=== PATIENT | female | born 1940 | race Caucasian/White ===

== ENCOUNTER 2020-02-27 14:30 | Outpatient (CLI) | payer MEDICARE, SELFPAY ==
--- NOTE | ~2020-02-27 | MM_ITS ---
EXAMINATION: MM screening francia BI w yue HISTORY: Screening mammogram TECHNIQUE: Craniocaudal and mediolateral oblique 3-D tomosynthesis images were obtained and synthetic 2-D images were generated. CAD analysis was submitted and interpreted. COMPARISON: , 01/01/2018, 01 0106/01/2016 bilateral digital screening mammogram examinations BREAST PARENCHYMAL COMPOSITION: There are scattered areas of fibroglandular density. FINDINGS: There is no evidence of suspicious mass, calcification, or architectural distortion to sugg est malignancy in either breast. There has been no suspicious interval change. IMPRESSION: 1. No mammographic evidence of malignancy. 2. Recommend routine screening mammography in one year. BI-RADS Category 1: Negative Reviewed, dictated and finalized at location A. [employer]
== END 2020-02-27 14:31 | disposition home or self-care (01) ==
LOC: ANHIMG 14:34
PROVIDERS: PCP Internal Medicine; Visit Provider Internal Medicine
DX: Z12.31 Encounter for screening mammogram for malignant neoplasm of breast (principal)
CPT/HCPCS: 77063; 77067

== ENCOUNTER 2020-05-28 07:50 | Outpatient (CLI) | payer MEDICARE, SELFPAY ==
--- NOTE | ~2020-05-28 | DEXA_ITS ---
Bone Density Report Name: Kristie Chan Age: 80 Sex: Female Ethnicity: White Date of : 1940 Indication: postmenopausal; Referring Provider: NOELLE RUIZ Study: Bone densitometry was performed. Exam Date: May 28, 2020 Accession number: [id number] Bone Density: Region BMD T-score Z-score Classification AP Spine (L1-L4) 0.908 -1.3 1.5 Osteopenia Femoral Neck (Left) 0.625 -2.0 0.4 Osteopenia Total Hip (Left) 0.779 -1.3 0.9 Osteopenia Total Hip Bilateral Avg 0.759 -1.5 0.7 Osteopenia Femoral Neck (Right) 0.661 -1.7 0.7 Osteopenia Total Hip (Right) 0.738 -1.7 0.5 Osteopenia World Health Organization criteria for BMD impression classify patients as: Normal (T-score at or above -1.0), Osteopenia (T-score between -1.0 and -2.5), or Osteoporosis (T-score at or below -2.5). 10-year Fracture Risk(1): Major Osteoporotic Fracture 15% Hip Fracture 4.4% Reported Risk Factors: [place] (), Neck BMD=0.625, BMI=30.3 (1) FRAX(R) Version 3.08. Fracture probability calculated for an untreated patient. Fracture probability may be lower if the patient has received treatment. Clinical Information Provided by Patient: Has used the following medications: Vitamin D, Calcium Patient maximum height was 59.5 Menopause Age: 52 Drinks caffeinated beverages Onset of menses at age 8 Number of children 4 Impression: The patient has low bone mass, based on the Left Femoral Neck T-score. The patient has an estimated ten-year risk of hip fracture of 4.4% and an estimated ten-year risk of major fracture of 15%, based on the WHO FRAX algorithm. Discussion: BONE DENSITY IS LOW AT ONE OR MORE SKELETAL SITES. THE PATIENT'S BMD AND CLINICAL RISK FACTORS CONTRIBUTE TO THIS PATIENT'S INCREASED RISK OF FRACTURE. This patient's lowest T-score is low at one or more skeletal sites. It meets the World Health Organization's (WHO) criteria for ?low bone mass? (T-score between -1.0 and -2.5). The patient's 10-year risk of hip fracture as calculated by FRAX exceeds the threshold where pharmacological therapy is recommended by the National Osteoporosis Foundation (NOF). However, all treatment decisions require clinical judgment and consideration of individual patient factors, including patient preferences, comorbidities, previous drug use, risk factors not captured in the FRAX model (e.g., frailty, falls, vitamin D deficiency, increased bone turnover, interval significant decline in bone density) and possible under or overestimation of fracture risk by FRAX. The patient should follow a healthful lifestyle (good nutrition with adequate calcium and vitamin D, and appropriate weight-bearing exercise). Follow-Up: Consider a repeat BMD and Vertebral Fracture Assessment (VFA) exam in 2 years or sooner if medically necessary, to re
== END 2020-05-28 07:51 | disposition home or self-care (01) ==
LOC: ANHIMG 07:53
PROVIDERS: PCP Internal Medicine; Visit Provider Internal Medicine
DX: Z78.0 Asymptomatic menopausal state (principal); M85.88 Other specified disorders of bone density and structure, other site; M85.852 Other specified disorders of bone density and structure, left thigh; M85.851 Other specified disorders of bone density and structure, right thigh
CPT/HCPCS: 77080

== ENCOUNTER 2020-07-24 05:20 | Emergency (ER) | payer MEDICARE, SELFPAY ==
[2020-07-24 05:19] VITALS: BP 130/70; PULSE 96; RESP 15; TEMP 36.8; O2SAT 97
--- NOTE | 2020-07-24 05:38 | ED.GENADULT ---
HPI - General Adult General Chief complaint: Epistaxis Stated complaint: SYNCOPE Time Seen by Provider: 07/24/20 05:28 History of Present Illness HPI narrative: Patient 80-year-old female presents the emergency department with chief complaint of epistaxis. The patient reports that for the last several days she has had bleeding out of her left nostril the patient has been seen by otolaryngology and had a cauterization done. The patient states this evening she started bleeding again from her nostril and felt as though she was going to pass out. The patient currently states she feels nauseated and reports there was a large amount of blood on the floor after her nosebleed this evening. Patient reports that this time it is stopped bleeding Related Data Home Medications Medication Instructions Recorded Confirmed aspirin 81 mg tablet,delayed 81 mg PO DAILY 02/23/19 04/27/20 release cholecalciferol (vitamin D3) 25 1,000 unit PO DAILY 02/23/19 04/27/20 mcg (1,000 unit) capsule omega 8-gnk-qvt-fish oil 1,000 mg 1 cap PO DAILY 02/23/19 04/27/20 (120 mg-180 mg) capsule docusate sodium 100 mg capsule 100 mg PO DAILY 03/28/19 04/27/20 vit tablet PO 03/28/19 04/27/20 M-lvrueow-ryckthrzs-rutin-giaq677 500 mg-50 mg-25 mg-40 mg tablet biotin 2,500 mcg capsule 2,500 mcg PO DAILY 04/27/20 04/27/20 vitamin B complex 1 tablet PO DAILY 04/27/20 04/27/20 Allergies Allergy/AdvReac Type Severity Reaction Status Date / Time adhesive tape Allergy Mild rash/non=it Verified 07/23/20 13:12 nicolas Review of Systems Review of Systems: Narrative: A 10 system review of systems was completed on the patient and is negative except for what is stated in the HPI. Nursing and ancillary documentation was reviewed. [facility] Surgical History Surgical History H/O oophorectomy History of right cataract surgery Hx of appendectomy Hx of cholecystectomy Hx of lumpectomy Family History Family History Sibling Carcinoma of colon Family history of malignant neoplasm of breast in first degree relative Family history of malignant neoplasm Mother Family history of malignant neoplasm of breast in first degree relative Family history of lung cancer Other Family history of malignant neoplasm of thyroid Social History Social History Smoking status: Never smoker Alcohol intake: never Exam Narrative: Exam Narrative: GENERAL: Well-appearing, well-nourished, and in no acute distress. HEAD: Normocephalic, atraumatic. EYES: PERRLA and EOMI. ENT: Nares clear, no rhinorrhea or epistaxis. Mucous membranes moist. There is a small amount of blood in the nasal cavity. There is no active bleeding at this time NECK: Supple. CHEST: Clear to auscultation. No respiratory distress. HEART: Regular rate and rhythm. No murmur heard. Normal peripheral pulses. ABDOMEN: Soft, nontender, nondistended, normal active bowel sounds. EXTREMITIES: Normal range of motion. No edema. SKIN: Warm, dry, no rash. NEURO: No focal deficits. Alert and oriented x3. PSYCH: Normal mood and affect. Course Vital Signs Vital signs: Vital Signs Temperature 36.8 C 07/24/20 05:19 Pulse Rate 96 07/24/20 05:19 Respiratory Rate 15 07/24/20 05:19 Blood Pressure 130/70 07/24/20 05:19 Pulse Oximetry 97 07/24/20 05:19 Temperature 36.9 C 07/24/20 06:57 Pulse Rate 84 07/24/20 06:57 Respiratory Rate 16 07/24/20 06:57 Blood Pressure 111/71 07/24/20 06:57 Pulse Oximetry 100 07/24/20 06:57 Medical Decision Making Vital Signs Vital Signs: Vital Signs Temperature 36.8 C 07/24/20 05:19 Pulse Rate 96 07/24/20 05:19 Respiratory Rate 15 07/24/20 05:19 Blood Pressure 130/70 07/24/20 05:19 Pulse Oximetry 97 07/24/20 05:19 Temperature 36.
[2020-07-24 06:19] LABS: Basophils Percent Auto 0.4 % (0.2-1.2); Eosinophils Absolute Auto 0.2 K/mm3 (0-0.3); Eosinophils Percent Auto 2.9 % (0-4.4); Hematocrit 38.2 % (37.0-47.0); Hemoglobin 12.7 g/dL (12.0-15.0); Immature Granulocyte Absolute 0.02 K/mm3 (0.00-0.031); Immature Granulocyte Percent A 0.3 % (0-0.5); Lymphocytes Absolute Auto 2.04 K/mm3 (0.9-3.2); Lymphocytes Percent Auto 26.8 % (18.3-44.2); Mean Corpuscular HGB Conc 33.2 g/dl (32-36); Mean Corpuscular Hemoglobin 31.1 pg (26-34); Mean Corpuscular Volume 93.6 fl (80-100); Mean Platelet Volume 8.9 fl (7.4-10.4); Monocytes Absolute Auto 0.4 K/mm3 (0.1-0.6); Monocytes Percent Auto 4.7 % (2.6-8.5); Neutrophils Absolute Auto 4.9 K/mm3 (1.3-6.7); Neutrophils Percent Auto 64.9 % (45.5-73.1); Platelet Count Result 305 k/mm3 (150-375); Red Blood Count 4.08 M/mm3 (4.2-5.4); Red Cell Distribution Width 12.6 % (11.5-14.5); White Blood Count 7.6 K/mm3 (4.5-10.0)
[2020-07-24 06:28] LABS: INR 0.9; Prothrombin Time 13.2 Seconds (11.1-14.7)
[2020-07-24 06:35] LABS: Alanine Aminotransferase 17 U/L (4-35); Albumin Level 3.6 g/dL (3.5-5.1); Alkaline Phosphatase 59 U/L (38-126); Anion Gap 3 mmol/L (8-16); Aspartate Amino Transferase 26 U/L (14-36); Bilirubin,Total 0.3 mg/dL (0.2-1.3); Blood Urea Nitrogen 14 mg/dL (7-17); Calcium 8.8 mg/dL (8.4-10.2); Carbon Dioxide 27 mmol/L (22-30); Chloride 109 mmol/L (98-107); Estimated Glomerular Filt Rate > 60; Glucose 108 mg/dL (65-105); Potassium 3.4 mmol/L (3.4-5.0); Sodium 139 mmol/L (137-145)
[2020-07-24] MEDS: PHENYLEPHRINE 1% NA SPR (*BKC) 15 ML BTL 2 SPRAY NASAL (06:45)
[2020-07-24] MEDS: ONDANSETRON HCL ODT 4 MG TABLET PO (06:56)
[2020-07-24 06:57] VITALS: BP 111/71; PULSE 84; RESP 16; TEMP 36.9; O2SAT 100
== END 2020-07-24 06:57 | disposition home or self-care (01) ==
PROVIDERS: Emergency Provider Emergency Medicine; PCP Internal Medicine
DX: R04.0 Epistaxis (principal); R55 Syncope and collapse; R11.0 Nausea; Z79.82 Long term (current) use of aspirin; Z98.41 Cataract extraction status, right eye
CPT/HCPCS: 36415; 80053; 85025; 85610; 85730; 99283; A9270

== ENCOUNTER 2020-08-07 07:56 | Emergency (ER) | payer MEDICARE, SELFPAY ==
[2020-08-07] VITALS (7 sets, daily range): BP systolic 125–149; BP diastolic 67–103; PULSE 78–126; RESP 17–20; TEMP 36.4; O2SAT 96–99
--- NOTE | 2020-08-07 09:35 | ED.GENADULT ---
HPI - General Adult General Chief complaint: Epistaxis <Mitchell Gallego PA-C - Last Filed: 08/07/20 11:59> Stated complaint: nosebleed <KENDRA Gillette Last Filed: 08/07/20 11:59> Time Seen by Provider: 08/07/20 08:25 <Mitchell Gallego PA-C - Last Filed: 08/07/20 11:59> Source: patient, family and RN notes reviewed <KENDRA Gillette Last Filed: 08/07/20 11:59> Mode of arrival: ambulatory <KENDRA Gillette Last Filed: 08/07/20 11:59> Limitations: no limitations <KENDRA Gillette Last Filed: 08/07/20 11:59> History of Present Illness HPI narrative: Patient is an 80-year-old female who presents with epistaxis from the left nare that began this morning after coughing patient denies URI symptoms patient has had epistaxis in the past requiring cautery has seen Dr. Villagomez ENT for this. Patient on arrival is in no distress denies any injury trauma or recent illness. Patient denies anticoagulant use <Mitchell Gallego PA-C - Last Filed: 08/07/20 11:59> Related Data Home medications: Home Medications Medication Instructions Recorded Confirmed aspirin 81 mg tablet,delayed 81 mg PO DAILY 02/23/19 04/27/20 release cholecalciferol (vitamin D3) 25 1,000 unit PO DAILY 02/23/19 04/27/20 mcg (1,000 unit) capsule omega 0-lwe-oqs-fish oil 1,000 mg 1 cap PO DAILY 02/23/19 04/27/20 (120 mg-180 mg) capsule docusate sodium 100 mg capsule 100 mg PO DAILY 03/28/19 04/27/20 vit tablet PO 03/28/19 04/27/20 M-cbrmkno-dkttejqin-rutin-vcbs282 500 mg-50 mg-25 mg-40 mg tablet biotin 2,500 mcg capsule 2,500 mcg PO DAILY 04/27/20 04/27/20 vitamin B complex 1 tablet PO DAILY 04/27/20 04/27/20 <KENDRA Gillette Last Filed: 08/07/20 11:59> Allergies/adverse reactions: Allergies Allergy/AdvReac Type Severity Reaction Status Date / Time adhesive tape Allergy Mild rash/non=it Verified 08/07/20 08:22 nicolas <Mitchell Gallego PA-C - Last Filed: 08/07/20 11:59> Review of Systems Review of Systems: All systems reviewed & are unremarkable except as noted in HPI and below <Mitchell Gallego PA-C - Last Filed: 08/07/20 11:59> PMFSH Surgical History Surgical History: Surgical History H/O oophorectomy History of right cataract surgery Hx of appendectomy Hx of cholecystectomy Hx of lumpectomy <Mitchell Gallego PA-C - Last Filed: 08/07/20 11:59> Family History Family History: Family History Sibling Carcinoma of colon Family history of malignant neoplasm of breast in first degree relative Family history of malignant neoplasm Mother Family history of malignant neoplasm of breast in first degree relative Family history of lung cancer Other Family history of malignant neoplasm of thyroid <Mitchell Gallego PA-C - Last Filed: 08/07/20 11:59> Social History Social History: Social History Smoking status: Never smoker Alcohol intake: never Gender identity (if verbalized by the patient): Female <Mitchell Gallego PA-C - Last Filed: 08/07/20 11:59> Exam Narrative: Exam Narrative: GENERAL: Well-appearing, well-nourished, and in no acute distress. HEAD: Normocephalic, atraumatic. EYES: PERRLA and EOMI. ENT: Patient with clots in the left nare which were clear there is no anterior bleeding bleeding appears to be posterior. Mucous membranes moist. Oropharynx without tonsillar hypertrophy exudate or other lesions. Some blood trickling down the posterior oropharynx NECK: Supple. No adenopathy or masses. CHEST: Clear to auscultation. No respiratory distress. No wheezes rales or rhonchi HEART: Regular rate and rhythm. No murmur heard. EXTREMITIES: Normal range of motion. No edema. SKIN: Warm, dry, no rash. NEURO: No focal deficits.
[2020-08-07 10:59] LABS: Basophils Percent Auto 0.4 % (0.2-1.2); Eosinophils Percent Auto 0.4 % (0-4.4); Hematocrit 36.1 % (37.0-47.0); Hemoglobin 11.9 g/dL (12.0-15.0); Immature Granulocyte Absolute 0.03 K/mm3 (0.00-0.031); Immature Granulocyte Percent A 0.3 % (0-0.5); Lymphocytes Absolute Auto 1.21 K/mm3 (0.9-3.2); Lymphocytes Percent Auto 12.6 % (18.3-44.2); Mean Corpuscular Hemoglobin 31.6 pg (26-34); Mean Corpuscular Volume 95.8 fl (80-100); Mean Platelet Volume 8.6 fl (7.4-10.4); Monocytes Absolute Auto 0.4 K/mm3 (0.1-0.6); Monocytes Percent Auto 3.6 % (2.6-8.5); Neutrophils Percent Auto 82.7 % (45.5-73.1); Platelet Count Result 415 k/mm3 (150-375); Red Blood Count 3.77 M/mm3 (4.2-5.4); Red Cell Distribution Width 14.2 % (11.5-14.5); White Blood Count 9.6 K/mm3 (4.5-10.0)
--- NOTE | 2020-08-07 11:15 | PC.NURSE ---
Report given to MAGGY Salazar
--- NOTE | 2020-08-08 08:58 | WPDCN ---
Assessment and Plan Assessment and plan (1) Left-sided epistaxis: Code(s): R04.0 - Epistaxis Status: Acute Assessment and Plan: 7.5 rhino rocket placed and inflated. The patient will follow-up with me in 24-72 hours for further evaluation. My concern is that this bleed is coming from posterior and may need operative intervention. We shall see. Instructions on how to further manage epistaxis and the rhino rocket were provided in great detail to the patient who voiced understanding. The ER will obtain a CBC to further determine the patient's hemoglobin And blood loss. HPI Data of Consult Date/Time: 08/08/20 08:58 Primary Care Provider: Toby Randall DO Consult Narrative Narrative: Kristie Chan is a 80 year old female With a one-day history of epistaxis from the left side. Of note the patient has had multiple episodes of epistaxis over the past several months. ENT consult for further evaluation as she has already my partners patient and in the practice. Patient denies being on any blood thinners. Review of Systems Constitutional: Constitutional: Denies fatigue, Denies fever(s) and Denies lethargy Eyes: Eyes: Denies blurry vision and Denies change in vision ENT: Reports as per HPI Cardiovascular: Cardiovascular: Denies chest pain Respiratory: Respiratory: Denies cough Endocrine: Endocrine: Denies fatigue Hematologic/Lymphatic: Hematologic/Lymphatic: Denies easy bleeding, Denies easy bruising and Denies lymphadenopathy Allergic/Immunologic: Allergic/Immunologic: Denies seasonal rhinorrhea PMFSH Surgical History Surgical History H/O oophorectomy History of right cataract surgery Hx of appendectomy Hx of cholecystectomy Hx of lumpectomy Family History Family History Sibling Carcinoma of colon Family history of malignant neoplasm of breast in first degree relative Family history of malignant neoplasm Mother Family history of malignant neoplasm of breast in first degree relative Family history of lung cancer Other Family history of malignant neoplasm of thyroid Social History Social History Smoking status: Never smoker Alcohol intake: never Gender identity (if verbalized by the patient): Female Meds Home Medications and Allergies Home Medications Medication Instructions Recorded Confirmed Type aspirin 81 mg tablet,delayed 81 mg PO DAILY 02/23/19 04/27/20 History release cholecalciferol (vitamin D3) 25 1,000 unit PO DAILY 02/23/19 04/27/20 History mcg (1,000 unit) capsule omega 5-jwm-qze-fish oil 1,000 mg 1 cap PO DAILY 02/23/19 04/27/20 History (120 mg-180 mg) capsule docusate sodium 100 mg capsule 100 mg PO DAILY 03/28/19 04/27/20 History vit tablet PO 03/28/19 04/27/20 History K-ndhyjeu-gtipoqcoh-rutin-qtxu363 500 mg-50 mg-25 mg-40 mg tablet amitriptyline 10 mg tablet 10 mg PO DAILY #90 tablet 02/27/20 04/27/20 Rx biotin 2,500 mcg capsule 2,500 mcg PO DAILY 04/27/20 04/27/20 History vitamin B complex 1 tablet PO DAILY 04/27/20 04/27/20 History ondansetron 4 mg PO Q8H PRN #10 tablet 07/24/20 Rx Allergies Allergy/AdvReac Type Severity Reaction Status Date / Time adhesive tape Allergy Mild rash/non=it Verified 08/07/20 08:22 nicolas Vital Signs Vital Signs - 24 hr 08/07/20 09:00 08/07/20 09:30 08/07/20 10:00 Pulse Rate 98 87 83 Respiratory Rate 20 20 20 Blood Pressure 126/76 139/79 125/67 Pulse Oximetry 98 96 96 08/07/20 10:20 08/07/20 12:11 Pulse Rate 98 78 Respiratory Rate 17 20 Blood Pressure 149/90 H 132/78 Pulse Oximetry 96 99 Exam Const: General: cooperative, healthy appearing, comfortable, well developed and alert HENMT: Head: normal to inspection, normocephalic and atraumatic Ears: hearing grossly normal bilaterally, e
--- NOTE | 2020-08-08 09:01 | WPDPROCEDUR ---
Procedures Epistaxis Control Time out performed: No Nostril: left Direct inspection: posterior source identified Cautery used: none Device inserted: hemostatic balloon Patient tolerated procedure: well and no complications Complications: pain
== END 2020-08-07 12:12 | disposition home or self-care (01) ==
PROVIDERS: Emergency Medicine Emergency Medical Services; Emergency Provider Emergency Medicine; PCP Internal Medicine
DX: R04.0 Epistaxis (principal); Z98.41 Cataract extraction status, right eye
CPT/HCPCS: 30901; 36415; 85025; 99283; A9270

== ENCOUNTER 2020-09-28 01:21 | Day surgery (SDC) | payer MEDICARE, SELFPAY ==
[2020-09-14 11:10] VITALS: BMI 28.8
--- NOTE | 2020-09-27 08:42 | PM.IMHP ---
H&P: HPI History of Present Illness Date/Time: 09/27/20 08:42 Patient presents for planned surgical procedures. Reports no new symptoms or changes in her medical history. Chief Complaint: Epistaxis left-sided recurrent and severe Review of Systems Constitutional: Constitutional: Denies fatigue, Denies fever(s) and Denies lethargy Eyes: Eyes: Denies blurry vision and Denies change in vision ENT: Reports as per HPI Cardiovascular: Cardiovascular: Denies chest pain Respiratory: Respiratory: Denies cough Endocrine: Endocrine: Denies fatigue Hematologic/Lymphatic: Hematologic/Lymphatic: Denies easy bleeding, Denies easy bruising and Denies lymphadenopathy Allergic/Immunologic: Allergic/Immunologic: Denies seasonal rhinorrhea [facility] Surgical History Surgical History H/O oophorectomy History of right cataract surgery Hx of appendectomy Hx of cholecystectomy Hx of lumpectomy Family History Family History Sibling Carcinoma of colon Family history of malignant neoplasm of breast in first degree relative Family history of malignant neoplasm Mother Family history of malignant neoplasm of breast in first degree relative Family history of lung cancer Other Family history of malignant neoplasm of thyroid Social History Social History Smoking status: Never smoker Second hand tobacco smoke exposure: No Alcohol intake: never Substance use: never Substance use type: does not use Living arrangements: with family Additional living arrangements comments: LIVES WITH DAUGHTER Gender identity (if verbalized by the patient): Female Spiritual care concerns: No Meds Home Medications and Allergies Home Medications Medication Instructions Recorded Confirmed Type cholecalciferol (vitamin D3) 25 1,000 unit PO QAM 02/23/19 09/14/20 History mcg (1,000 unit) capsule docusate sodium 100 mg capsule 100 mg PO DAILY 03/28/19 09/14/20 History vit 1 tablet PO HS 03/28/19 09/14/20 History Y-prcyffh-yezbwqriw-rutin-[id number] 500 mg-50 mg-25 mg-40 mg tablet vitamin B complex 1 tablet PO QAM 04/27/20 09/14/20 History ondansetron 4 mg PO Q8H PRN #10 tablet 07/24/20 09/14/20 Rx amitriptyline 10 mg PO HS 09/14/20 09/14/20 History calcium carbonate [Tums] 300 mg PO BID 09/14/20 09/14/20 History Allergies Allergy/AdvReac Type Severity Reaction Status Date / Time adhesive tape Allergy Mild rash/non=it Verified 09/14/20 11:04 nicolas Exam Const: General: cooperative, healthy appearing, comfortable, well developed and alert HENMT: Head: normal to inspection, normocephalic and atraumatic Ears: hearing grossly normal bilaterally, external ears normal, TM's normal bilaterally and EAC's normal General nose exam: Normal external nose present, Normal nares present, No nasal polyps present, Normal nasal mucous membranes and turbinates present and Normal septum present Face and sinus: normal facial exam Mouth: Yes Normal oral and palatal mucosa present, Yes lip normal, Yes tongue normal, Yes oropharynx normal and Yes moist mucous membranes Teeth and gingiva: dentition normal and gingiva normal Throat: posterior oropharynx normal, tonsils normal and uvula midline Eyes: General: appearance normal, both eyes and all related structures Periorbital: periorbital findings normal Eyelids: eyelids normal Conjunctivae: conjunctivae normal Sclera: sclerae normal Neck: Neck: normal visual inspection, full ROM and no lymphadenopathy Thyroid: thyroid normal Lymphatic: no lymphadenopathy noted Resp: Effort & Inspection: normal respiratory effort and able to speak in complete sentences Cardio: Jugular venous distension: no JVD Neuro: Cranial nerves: Yes CN's II-XII intact bilaterally Assessment and Plan Assessment and plan (1) Left-sided epista
[2020-09-28] VITALS (8 sets, daily range): BP systolic 126–152; BP diastolic 68–94; PULSE 60–87; RESP 14–22; TEMP 36.2–36.4; O2SAT 96–100
--- NOTE | 2020-09-28 07:03 | WPDHPUPDATE1 ---
History and Physical Update Update Date/Time: 09/28/20 07:03 History and Physical has been reviewed, including an updated exam of the patient. There are NO changes in the patient's condition. Risks, benefits, and alternatives have been discussed and questions answered. Patient agrees to proceed with procedure.
--- NOTE | 2020-09-28 08:11 | WPDANESEPPF ---
Anes - Initial Pre Proc Eval Procedure: Operation Date: 09/28/20 09:30 Proposed Procedures p Endoscopic Ligation of Left Sphenopalantine Artery, Left Maxillary Antrostomy - Daniel Bryant MD Date/Time: 09/28/20 08:11 Surgeon: Daniel Bryant MD Pre Op Diagnosis: left sided epistaxis Patient Data Age: 80 Gender: F Height: 1.51 m Weight: 65.9 kg Allergies Allergy/AdvReac Type Severity Reaction Status Date / Time adhesive tape Allergy Mild rash/non=it Verified 09/28/20 08:06 nicolas Home Medications Medication Instructions Recorded Confirmed Type cholecalciferol (vitamin D3) 25 1,000 unit PO QAM 02/23/19 09/28/20 History mcg (1,000 unit) capsule docusate sodium 100 mg capsule 100 mg PO DAILY 03/28/19 09/28/20 History vit 1 tablet PO HS 03/28/19 09/14/20 History C-mgwmijy-qffoeumja-rutin-ybph874 500 mg-50 mg-25 mg-40 mg tablet vitamin B complex 1 tablet PO QAM 04/27/20 09/28/20 History ondansetron 4 mg PO Q8H PRN #10 tablet 07/24/20 09/28/20 Rx amitriptyline 10 mg PO HS 09/14/20 09/28/20 History calcium carbonate [Tums] 300 mg PO BID 09/14/20 09/28/20 History Patient hx anesthesia problems: none Family hx anesthesia problems: none PMFSH Surgical History Surgical History H/O oophorectomy History of right cataract surgery Hx of appendectomy Hx of cholecystectomy Hx of lumpectomy Family History Family History Sibling Carcinoma of colon Family history of malignant neoplasm of breast in first degree relative Family history of malignant neoplasm Mother Family history of malignant neoplasm of breast in first degree relative Family history of lung cancer Other Family history of malignant neoplasm of thyroid Social History Social History Smoking status: Never smoker Second hand tobacco smoke exposure: No Alcohol intake: never Substance use: never Substance use type: does not use Living arrangements: with family Additional living arrangements comments: LIVES WITH DAUGHTER Gender identity (if verbalized by the patient): Female Spiritual care concerns: No Anes - Eval Final PreProcedure Day of Procedure 09/28/20 08:11 Patient weight: overweight Heart: regular rate and rhythm Lungs: clear to auscultation Airway: Mallampati scale class II Neurological: alert and oriented Last oral intake: >/= 8 hours ASA classification: II Emergent: no Anesthetic plan: proceed Anesthesia type and monitoring: general ETT and standard monitoring Informed Consent: The patient's anesthetic plan and its attendant risks and benefits were discussed with the patient/family/POA. Questions were solicited and answers provided to the satisfaction of the patient/family/POA.
[2020-09-28] MEDS: ACETAMINOPHEN 500 MG TABLET 1000 MG PO (08:13)
[2020-09-28] MEDS: LACTATED RINGERS 1,000 ML 30 ML IV CONT (08:13)
[2020-09-28] MEDS: ceFAZolin 2 GM/D5W 50 ML 2 GM/50 ML BAG IVPB (08:27)
[2020-09-28] MEDS: OXYMETAZOLINE HCL 0.05% NAS 15 ML BTL (*BKC) 1 SPRAY NASAL (08:44)
--- NOTE | 2020-09-28 09:42 | W.PM.PROC2 ---
Procedure Note - Detailed Date of Procedure 09/28/20 Pre-op Diagnosis left sided epistaxis, recurrent, severe Post-op Diagnosis same Procedure Performed left-sided endoscopic maxillary antrostomy for access left-sided ligation of the sphenopalatine artery endoscopically Surgeon Daniel Bryant MD Anesthesia general Indications left sided epistaxis, recurrent, severe Findings interestingly there was clot in the posterior left middle meatus as well as left maxillary sinus space sphenopalatine artery the located and ligated Description of Procedure the patient was correctly identified and consent was verified in the preoperative holding area. The patient was then brought to the operating room and a time-out performed. General anesthesia was induced and endotracheal tube was secured the patient's airway and taped the left lower lip. Afrin-soaked pledgets were placed bilaterally allowed to sit for 5 minutes then removed. The patient was then prepped and draped for the aforementioned procedure. The left middle turbinate was medialized using a Lazbuddie and uncinectomy as well as maxillary antrostomy performed using backbiter straight through cut. Hemostasis was achieved using the intermittent application of Afrin-soaked pledgets. The posterior lamella was then dissected further posteriorly into the Anya ethmoidalis was located. The Anya ethmoidalis was gently removed exposing a pulsating sphenopalatine artery. This was bovied with suction Bovie at a setting of 20. The artery was completely transected. Hemostasis from this region was then excellent. Afrin-soaked pledgets were applied again and allowed to sit for 5 minutes. At the end of the procedure hemostasis was adequate. All the instrumentation and hardware removed. This marked the end the procedure. Care the patient was turned over to Anesthesiology. There were no complications. Blood loss was approximately 25 cc. Estimated Blood Loss 25 Drains No Packing No Pathology none sent Complications No immediate complications Condition stable Disposition PACU
[2020-09-28] MEDS: fentaNYL CITRATE INJ (*CRX) 100 MCG/2 ML VIAL 25 MCG IV PUSH ×2 (09:51→09:56)
== END 2020-09-28 11:09 | disposition home or self-care (01) ==
PROVIDERS: PCP Internal Medicine; Visit Provider Otolaryngology
PROC: (CPT 31256; principal; 2020-09-28 09:30)
DX: R04.0 Epistaxis (principal); Z90.49 Acquired absence of other specified parts of digestive tract
CPT/HCPCS: 31256; 31241; A9270; J0330; J0690; J1100; J2405; J2704; J3010; J7120

== ENCOUNTER 2021-05-28 07:23 | Outpatient (CLI) | payer MEDICARE, SELFPAY ==
--- NOTE | ~2021-05-28 | MM_ITS ---
EXAMINATION: MM screening francia BI w yue HISTORY: Screening mammogram, family history of breast cancer in her sister. TECHNIQUE: Craniocaudal and mediolateral oblique 3-D tomosynthesis images were obtained and synthetic 2-D images were generated. CAD analysis was submitted and interpreted. COMPARISON: 02/27/2020, 02/03/2019, 01/01/2018 BREAST PARENCHYMAL COMPOSITION: The breasts are heterogeneously dense, which may obscure small masses . FINDINGS: RIGHT BREAST: There is a possible mass in the posterior third of the upper-outer quadrant breast best appreciated 11.5 cm from the nipple on the mediolateral oblique view. LEFT BREAST: There is no evidence of suspicious mass, calcification, or architectural distortion to s uggest malignancy. There has been no significant interval change. IMPRESSION: 1. Possible right breast mass. 2. Additional mammographic views and possible breast ultrasound are recommended. BI-RADS Category 0: Incomplete: Needs additional imaging evaluation. Reviewed, dictated and finalized at location A. 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 Possible right breast mass. 2. Additional mammographic views and possible breast ultrasound are recommended . BI-RADS Category 0: Incomplete: Needs additional imaging evaluation.
== END 2021-05-28 07:24 | disposition home or self-care (01) ==
LOC: ANHIMG 07:26
PROVIDERS: PCP Internal Medicine; Visit Provider Nurse Practitioner
DX: Z12.31 Encounter for screening mammogram for malignant neoplasm of breast (principal); R92.8 Other abnormal and inconclusive findings on diagnostic imaging of breast
CPT/HCPCS: 77063; 77067

== ENCOUNTER 2021-06-20 12:48 | Outpatient (CLI) | payer MEDICARE, SELFPAY ==
--- NOTE | ~2021-06-20 | MMUS_ITS ---
EXAMINATION: MM diagnostic francia RT w yue, US breast RT limited HISTORY: Possible right breast mass in posterior third of upper outer quadrant of right breast 11.5 c m from nipple reported on 05/28/2021 screening mammogram TECHNIQUE: Additional 3-D tomosynthesis images of right breast were performed and synthetic 2-D image s were generated. CAD analysis was submitted and interpreted. High resolution targeted right breast u ltrasound was performed. COMPARISON: 05/28/2021 bilateral screening mammogram FINDINGS: MAMMOGRAPHIC FINDINGS: The area of concern for possible small right breast mass in the posterior third of the upper outer qu adrant of the right breast 11.5 cm from the nipple is not reproduced on these supplemental views. ULTRASOUND: Upper outer quadrant right breast ultrasound examination reveals no suspicious mass or shadowing or o ther significant sonographic finding. IMPRESSION: 1. No mammographic evidence of malignancy 2. Routine mammographic screening is recommended. BI-RADS Category 1: Negative Reviewed, dictated and finalized at location C. IMPRESSION: 1. No mammographic evidence of malignancy 2. Routine mammographic screening is recommended. BI-RADS Category 1: Negative
== END 2021-06-20 12:49 | disposition home or self-care (01) ==
LOC: ANHIMG 12:51
PROVIDERS: PCP Internal Medicine; Visit Provider Nurse Practitioner
DX: R92.8 Other abnormal and inconclusive findings on diagnostic imaging of breast (principal)
CPT/HCPCS: 76642; 77061; 77065; G0279

== ENCOUNTER 2022-08-19 07:47 | Outpatient (CLI) | payer MEDICARE, SELFPAY ==
--- NOTE | ~2022-08-19 | MM_ITS ---
EXAMINATION: MM screening francia BI w yue HISTORY: Screening mammogram, family history of breast cancer in her sister. TECHNIQUE: Craniocaudal and mediolateral oblique 3-D tomosynthesis images were obtained and synthetic 2-D images were generated. CAD analysis was submitted and interpreted. COMPARISON: 06/20/2021, 05/28/2021, 02/27/2020 BREAST PARENCHYMAL COMPOSITION: The breasts are heterogeneously dense, which may obscure small masses . FINDINGS: No suspicious mass, calcification, or architectural distortion are identified in either roslyn ast to suggest malignancy. There has been no suspicious interval change. IMPRESSION: 1. No mammographic evidence of malignancy. 2. Recommend routine screening mammography while the patient remains in good health. BI-RADS Category 1: Negative Reviewed, dictated and finalized at location A. IMPRESSION: 1. No mammographic evidence of malignancy. 2. Recommend routine screening mammography while the patient remains in good he alth. BI-RADS Category 1: Negative
== END 2022-08-19 07:48 | disposition home or self-care (01) ==
PROVIDERS: PCP Internal Medicine; Visit Provider Internal Medicine
DX: Z12.31 Encounter for screening mammogram for malignant neoplasm of breast (principal)
CPT/HCPCS: 77063; 77067

== ENCOUNTER 2024-05-19 10:02 | Outpatient (CLI) | payer MEDICARE, SELFPAY ==
--- NOTE | ~2024-05-19 | XR_ITS ---
Right Hand Technique: PA, oblique, and lateral views were obtained. Clinical History: Pain Findings: No acute fracture or dislocation is seen. Osseous alignment is anatomic. Joint there is mod erate degenerative change of the first CMC joint. There is moderate to advanced degenerative change o f the interphalangeal joint of the thumb, as well as the second, third, and fifth DIP joints. There i s mild degenerative change of the remaining interphalangeal joints.. Soft tissues are unremarkable. Impression: Polyarticular osteoarthritis, as above. Reviewed, dictated and finalized at location M. 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
--- OUTSIDE RECORDS SUMMARY | 2024-05-19 10:25 | XMS_ITS | Continuity of Care Document ---
Author Organization 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 No Information Dec-2 9-200 9 Anusha Taylor [address], [place], [place], [facility], [place]. tel:[phone] [facility], [address] [place] [address] [address], [place], [place], [id number], [place] tel:[phone] [facility] No Information Dec-2 3-200 8 Anusha Taylor [address] , [address], [place], [place], [facility], [place]. tel:[phone] [facility], [address], [place], [place], [id number], [place] tel:[phone] [facility] No Information Dec-1 4-200 7 Anusha [address] , [address], [place], [address], [place]. tel:[phone] Family History Family Member Type Diagnosis Age At Onset No Information Payers Payer name Insurance type Covered republican ID Authoriza tirussell(s) [place] [id number] [place] [id number] Social History Type Description Quantity Date Captured Comments Sex Female Smoking Status No Information Chief Complaint And Reason For Visit No Information Reason For Referral Reason For Referral No Information History Of Present Illness Encounter Date Complaint History Of Prese nt Illness No Information Functional Status Date Functional Assessmen t No Information Instructions Date Instruction Additional Infor mation No Information Assessments Type Assessment Date No Information Patient Care Teams Name Effective Dates (start - stop) Status Members No Information
== END 2024-05-19 10:03 | disposition home or self-care (01) ==
PROVIDERS: PCP Internal Medicine; Visit Provider Internal Medicine
DX: M19.041 Primary osteoarthritis, right hand (principal)
CPT/HCPCS: 73130